=== PATIENT | male | born 1990 | race African-American/Black ===

== ENCOUNTER 2018-11-11 15:24 | Emergency (ER) | payer MEDICAID ==
[~2018-11-11] VITALS: Ht 190.5 cm; Wt 168.6 kg
[2018-11-11] MEDS ORDERED: KETOROLAC TROMETHAMINE 30 MG/ML VIAL IM ONE (18:15)
[2018-11-11 18:26] VITALS: BP 168/117
== END 2018-11-11 18:27 | disposition home or self-care (01) ==
LOC: EMS 15:25
DX: S83.91XA Sprain of unspecified site of right knee, initial encounter (principal); S63.611A Unspecified sprain of left index finger, initial encounter; I10 Essential (primary) hypertension; X50.3XXA Overexertion from repetitive movements, initial encounter; Y93.89 Activity, other specified; Y92.89 Other specified places as the place of occurrence of the external cause; Y99.8 Other external cause status
CPT/HCPCS: 29130; 73130; 73562; 96372; 99283; J1885

== ENCOUNTER 2019-08-04 19:00 | Emergency (ER) | payer MEDICAID ==
[~2019-08-04] VITALS: Ht 188 cm; Wt 168.2 kg
[2019-08-04] MEDS ORDERED: ASPI81 PO (19:11)
[2019-08-04] MEDS ORDERED: DIPH12.54 PO (19:11)
[2019-08-05] MEDS ORDERED: KETOROLAC TROMETHAMINE 60 MG/2 ML VIAL IM ONE (01:00)
[2019-08-05 02:25] VITALS: BP 150/86
== END 2019-08-05 02:49 | disposition home or self-care (01) ==
LOC: EMS 19:01
DX: M54.5 Low back pain (principal); G43.909 Migraine, unspecified, not intractable, without status migrainosus; I10 Essential (primary) hypertension; Z79.82 Long term (current) use of aspirin; Z79.899 Other long term (current) drug therapy; V43.52XA Car driver injured in collision with other type car in traffic accident, initial encounter; Y93.89 Activity, other specified; Y92.488 Other paved roadways as the place of occurrence of the external cause; Y99.8 Other external cause status
CPT/HCPCS: 72100; 96372; 99283; J1885